=== PATIENT | male | born 1970 | race Hispanic/Latino ===

== ENCOUNTER 2018-06-26 21:20 | Observation (INO) | payer OTHER ==
[2018-06-26 22:01] LABS: BASO # 0.1 K/uL (0.0-0.2); BASO % 0.9 % (0.0-2.0); EOS # 0.1 K/uL (0.0-0.7); EOS % 1.8 % (0.0-4.0); HEMOGLOBIN 15.2 g/dL (12.0-18.0); LYMPH # 2.9 K/uL (1.0-4.3); LYMPH % 41.1 % (20.0-40.0); MEAN CELL VOLUME 81.6 fl (80.0-94.0); MEAN CORPUSCULAR HEMOGLOBIN 27.2 pg (27.0-31.0); MEAN CORPUSCULAR HGB CONC 33.3 g/dL (33.0-37.0); MEAN PLATELET VOLUME 9.8 fl (7.2-11.7); MONO # 0.5 K/uL (0.0-0.8); MONO % 7.1 % (0.0-10.0); NEUT # 3.5 K/uL (1.8-7.0); NEUT % 49.1 % (50.0-75.0); NRBC % 0.1 % (0.0-0.0); RBC 5.57 Mil/uL (4.40-5.90); RED CELL DISTRIBUTION WIDTH 13.6 % (11.5-14.5); WHITE BLOOD COUNT 7.1 K/uL (4.8-10.8)
[2018-06-26 22:08] LABS: PROTHROMBIN TIME 10.9 Seconds (9.8-13.1)
[2018-06-26 22:11] LABS: PARTIAL THROMBOPLASTIN TIME 34.1 Seconds (25.6-37.1)
[2018-06-26 22:21] LABS: BLOOD UREA NITROGEN 19 mg/dl (9-20); CALCIUM 9.7 mg/dL (8.4-10.2); GFR NON-AFRICAN AMERICAN > 60
[2018-06-26] MEDS ORDERED: Enoxaparin 80 mg Syringe SC STA (22:25)
--- NOTE | 2018-06-26 22:26 | ED PDOC ---
HPI: Chest Pain Time Seen by Provider: 06/26/18 21:47 Chief Complaint (Nursing): Palpitations Chief Complaint (Provider): Palpitations History Per: Patient History/Exam Limitations: no limitations Onset/Duration Of Symptoms: Days Current Symptoms Are (Timing): Still Present Severity: Moderate Pain Scale Rating Of: 0 Associated Symptoms: denies: Nausea, Dyspnea, Diaphoresis, Syncope Modifying Factors: None Exacerbating Factors: None - Risk Factors PE Risk Factors: Neg: Extremity Immobilization/Fx, Decreased Mobilty /Activity, Recent Major Surgery, Recent Hospitalization, Previous DVT, Previous PE Past Medical History Reviewed: Historical Data, Nursing Documentation Vital Signs: Last Vital Signs Temp 97.4 F L 06/26/18 21:36 Pulse 133 H 06/26/18 21:36 Resp 16 06/26/18 21:36 BP 123/76 06/26/18 21:36 Pulse Ox 98 06/26/18 21:36 - Medical History PMH: No Chronic Diseases - Surgical History Surgical History: No Surg Hx - Family History Family History: States: No Known Family Hx - Home Medications Home Medications: Ambulatory Orders Medication Instructions Recorded Metoprolol Tartrate [Lopressor] 12.5 mg PO Q12 #60 tab 06/27/18 - Allergies Allergies/Adverse Reactions: Allergies Allergy/AdvReac Type Severity Reaction Status Date / Time Penicillins Allergy RASH Verified 06/26/18 22:35 VIJAY Risk Score for UA/NSTEMI - VIJAY Risk Score Age > 64: NO 3 or more CAD Risk Factors: NO Known CAD (Stenosis greater than 50%): NO Aspirin use in past 7 days: NO Severe Angina: NO EKG ST changes greater than 0.5mm: NO Positive Cardiac Marker: NO VIJAY Score: 0 Risk %: 5% Review of Systems ROS Statement: Except As Marked, All Systems Reviewed And Found Negative Physical Exam - Reviewed Nursing Documentation Reviewed: Yes Vital Signs Reviewed: Yes - Physical Exam Appears: Positive for: Non-toxic, No Acute Distress Head Exam: Positive for: ATRAUMATIC, NORMAL INSPECTION Skin: Positive for: Normal Color, Warm, Dry Eye Exam: Positive for: EOMI ENT: Positive for: Normal ENT Inspection Neck: Positive for: Painless ROM, Supple Cardiovascular/Chest: Positive for: Tachycardia, Irregularly Irregular Respiratory: Positive for: Normal Breath Sounds. Negative for: Wheezing, Respiratory Distress Gastrointestinal/Abdominal: Positive for: Soft. Negative for: Tenderness Extremity: Positive for: Normal ROM Neurologic/Psych: Positive for: Alert, Oriented - Laboratory Results Result Diagrams: 06/26/18 21:57 06/26/18 21:57 - ECG O2 Sat by Pulse Oximetry: 98 Medical Decision Making Medical Decision Making: IMpression Palpitations Diff include Afib with RVR, Atrial flutter, SVT Plans Labs EKG Telemetry Cardizem IV bolus and drip Lovenox reassess Disposition - Clinical Impression Clinical Impression: Palpitations, Atrial flutter - Patient ED Disposition Is Patient to be Admitted: Yes Discussed With DrReshma: Issac Forrester Counseled Patient/Family Regarding: Studies Performed, Diagnosis - Disposition Disposition Time: 22:30 Condition: FAIR - Pt Status Changed To: Hospital Disposition Of: Observation - POA Present On Arrival: None
[2018-06-26 22:42] LABS: B-TYPE NATRIURETIC PEPTIDE 24.8 pg/ml (0-450)
[2018-06-27] MEDS ORDERED: Sodium Chloride 0.9% 1,000 ML IV SCH (02:15)
--- NOTE | 2018-06-27 09:43 | CP.PCM.HP ---
History of Present Illness - History of Present Illness History of Present Illness: pt admitted for new afib/flutter. was on cardizem gtt which was dc. got lopressor. vs noted. bw from er noted. workup w/ cardio/echo pending. t has been doing ketosis diet and s/s started w/ pt going for walk yesterday Present on Admission - Present on Admission Any Indicators Present on Admission: No Review of Systems - Cardiovascular Cardiovascular: As Per HPI Past Patient History - Past Social History Smoking Status: Never Smoked - CARDIAC Hx Cardiac Disorders: Yes - PULMONARY Hx Respiratory Disorders: No - NEUROLOGICAL Hx Neurological Disorder: No - HEENT Hx HEENT Problems: No - RENAL Hx Chronic Kidney Disease: No - ENDOCRINE/METABOLIC Hx Endocrine Disorders: No - HEMATOLOGICAL/ONCOLOGICAL Hx Blood Disorders: No - INTEGUMENTARY Hx Dermatological Problems: No - MUSCULOSKELETAL/RHEUMATOLOGICAL Hx Musculoskeletal Disorders: No - GASTROINTESTINAL Hx Colitis: Yes (Ulcerative Colitis) - GENITOURINARY/GYNECOLOGICAL Hx Genitourinary Disorders: No - PSYCHIATRIC Hx Psychophysiologic Disorder: No - SURGICAL HISTORY Hx Herniorrhaphy: Yes - ANESTHESIA Hx Anesthesia: Yes Hx Anesthesia Reactions: No Hx Malignant Hyperthermia: No Has any member of the family had a problem w/ anesthesia?: No Meds Allergies/Adverse Reactions: Allergies Allergy/AdvReac Type Severity Reaction Status Date / Time Penicillins Allergy RASH Verified 06/26/18 22:35 Physical Exam - Constitutional Appears: Well, Non-toxic, No Acute Distress - Head Exam Head Exam: ATRAUMATIC, NORMAL INSPECTION, NORMOCEPHALIC - Eye Exam Eye Exam: EOMI, Normal appearance, PERRL Pupil Exam: NORMAL ACCOMODATION, PERRL - ENT Exam ENT Exam: Mucous Membranes Moist, Normal Exam - Neck Exam Neck exam: Positive for: Normal Inspection - Respiratory Exam Respiratory Exam: Clear to Auscultation Bilateral, NORMAL BREATHING PATTERN - Cardiovascular Exam Cardiovascular Exam: REGULAR RHYTHM, RRR - GI/Abdominal Exam GI & Abdominal Exam: Normal Bowel Sounds, Soft. absent: Tenderness - Extremities Exam Extremities exam: Positive for: full ROM, normal capillary refill, normal inspection, pedal pulses present - Back Exam Back exam: NORMAL INSPECTION - Neurological Exam Neurological exam: Alert, CN II-XII Intact, Normal Gait, Oriented x3, Reflexes Normal - Psychiatric Exam Psychiatric exam: Normal Affect, Normal Mood - Skin Skin Exam: Dry, Intact, Normal Color, Warm Results - Vital Signs Recent Vital Signs: Last Vital Signs Temp 98.3 F 06/27/18 08:07 Pulse 63 06/27/18 08:55 Resp 18 06/27/18 08:07 BP 97/63 L 06/27/18 08:55 Pulse Ox 98 06/27/18 08:07 - Labs Result Diagrams: 06/26/18 21:57 06/26/18 21:57 Labs: Laboratory Results - last 24 hr 06/26/18 06/26/18 06/26/18 21:57 21:57 21:57 WBC 7.1 RBC 5.57 Hgb 15.2 Hct 45.5 MCV 81.6 MCH 27.2 MCHC 33.3 RDW 13.6 Plt Count 156 MPV 9.8 Neut % (Auto) 49.1 L Lymph % (Auto) 41.1 H Greenlee % (Auto) 7.1 Eos % (Auto) 1.8 Baso % (Auto) 0.9 Neut # (Auto) 3.5 Lymph # (Auto) 2.9 Greenlee # (Auto) 0.5 Eos # (Auto) 0.1 Baso # (Auto) 0.1 PT 10.9 INR 1.0 APTT 34.1 Sodium 140 Potassium 4.0 Chloride 99 Carbon Dioxide 31 H Anion Gap 14 BUN 19 Creatinine 0.8 Est GFR ( Amer) > 60 Est GFR (Non-Af Amer) > 60 Random Glucose 110 Calcium 9.7 Troponin I < 0.0120 NT-Pro-B Natriuret Pep 24.8 TSH 3rd Generation 06/26/18 21:57 WBC RBC Hgb Hct MCV MCH MCHC RDW Plt Count MPV Neut % (Auto) Lymph % (Auto) Greenlee % (Auto) Eos % (Auto) Baso % (Auto) Neut # (Auto) Lymph # (Auto) Greenlee # (Auto) Eos # (Auto) Baso # (Auto) PT INR APTT Sodium Potassium Chloride Carbon Dioxide Anion Gap BUN Creatinine Est GFR ( Amer) Est GFR (Non-Af Amer) Random Glucose Calcium Troponin I NT-Pro-B Natriuret Pep TSH 3rd Generation 3.22 Assessment & Plan (1) Atrial flutter Assessment and Plan: converted and is in nsr at htis time echo/cardio to be done outpt as per pts request. pts made appt w/ [facility] who will see pt today and do echo outpt today. pt offers no complaints, states will go directly to cardio Status: Acute (2) DVT (deep venous thrombosis) Assessment and Plan: scd nad aehose ambulation Status: Acute Decision To Admit - Pt Status Changed To: Hospital Disposition Of: Observation - . Bed Request Type: Telemetry Admitting Physician: Layton Murphy
[2018-06-27 10:34] VITALS: PULSE 63
[2018-06-27 10:42] VITALS: BP 97/63; RESP 18; TEMP 98.3; O2SAT 98
--- NOTE | 2018-06-27 19:16 | CARD ---
APPROVED REPORT Date of service: 06/26/2018 EKG Measurement Heart [id number] <Conclusion> Atrial flutter with variable block Nonspecific ST changes Abnormal ECG
== END 2018-06-27 11:08 | disposition home or self-care (01) ==
LOC: H.ER 21:20 → H.ERHOLD 22:42 → H.TEL 06-27 00:57
PROVIDERS: ADMIT Family Medicine; ATTEND Family Medicine
DX: I48.92 Unspecified atrial flutter (principal); Z88.0 Allergy status to penicillin
CPT/HCPCS: 80048; 83880; 84443; 84484; 85025; 85610; 85730; 93005; 96361; 96372; 96374; 96376; 99283; G0378; J1650; J7030